=== PATIENT | male | born 1955 | race African-American/Black ===

== ENCOUNTER 2024-08-10 19:06 | Emergency (ER) | payer OTHER, SELFPAY ==
--- NOTE | ~2024-08-10 | XR_ITS ---
EXAMINATION: XR chest 2V Exam Date/Time: 08/10/2024 19:35 CDT HISTORY: increased SOB; diminished lung sounds Comparison: None. RESULT: Lines, tubes, and devices: None. Lungs and pleura: Mild diffuse reticular opacities. Emphysematous/senescent change. Mild posterior c ostophrenic angle blunting. Minimal streaky bibasilar scar/atelectasis. Cardiomediastinal silhouette: Stable. Other: No acute osseous or upper abdominal finding. IMPRESSION: Mild interstitial edema. Trace bilateral pleural effusions versus chronic pleural blunting. Reviewed, dictated and finalized at location K. IMPRESSION: Mild interstitial edema. Trace bilateral pleural effusions versus chronic pleur al blunting.
--- NOTE | 2024-08-10 19:22 | ED.SOB ---
HPI - SOB/Dyspnea General Chief Complaint: Shortness of Breath/Dyspnea Stated Complaint: shortness of breath,dizzy,sweat Time Seen by Provider: 08/10/24 19:22 Source: patient, RN notes reviewed and old records reviewed Mode of arrival: ambulatory Limitations: no limitations History of Present Illness HPI Narrative: 69-year-old male to [facility] for complaint shortness of breath, dizziness, sweating. Patient reports that shortness of breath is nothing new for him as he has a history of asthma. Patient states that he had his flu shot earlier today and has since experienced and excessive sweating as well as his baseline shortness of breath. Patient states he went to work after his flu shot and was sent home due to his symptoms. Patient states that his symptoms have improved since they initially started but states that he wants to be seen. Patient able to tolerate fluids by mouth. Patient denies fever sore throat difficulty swallowing, Cough, chest pain. Patient resting in exam room in no acute distress. Respirations even and nonlabored. Related Data Home Medications Medication Instructions Recorded Confirmed albuterol sulfate 90 mcg/actuation 90 mcg inhalation PRN PRN 08/10/24 08/10/24 aerosol inhaler useasdirected atorvastatin 20 mg tablet 20 mg PO DAILY 08/10/24 08/10/24 fluticasone fur. 200 mcg-umeclid See Rx Instructions .Route .COMPLEX 08/10/24 08/10/24 62.5 mcg-vilant 25 mcg inhalat.powder (Trelegy Ellipta) furosemide 40 mg tablet 40 mg PO DAILY 08/10/24 08/10/24 ivabradine 5 mg tablet (Corlanor) 5 mg PO BID 08/10/24 08/10/24 lisinopril 20 mg tablet 20 mg PO DAILY 08/10/24 08/10/24 spironolactone 25 mg tablet 25 mg PO DAILY 08/10/24 08/10/24 Allergies Allergy/AdvReac Type Severity Reaction Status Date / Time Penicillins Allergy Unknown Verified 08/10/24 19:26 Review of Systems Review of Systems: All systems reviewed & are unremarkable except as noted in HPI and below Constitutional: Constitutional: Reports as per HPI and Reports excessive sweating Eyes: Eyes: Reports no additional eye complaints ENT: Reports system reviewed and no additional complaints, except as documented Cardiovascular: Cardiovascular: Reports no additional cardiovascular complaints, Denies chest pain and Denies dyspnea Respiratory: Respiratory: Reports as per HPI, Denies cough and Reports dyspnea Musculoskeletal: Musculoskeletal: Reports no additional musculoskeletal complaints Neurologic: Reports as per HPI and Reports dizziness Psychiatric: Psychiatric: Reports no additional psychiatric complaints PMFSH Comments At the time of my signature, I reviewed and agree with the nursing past medical, surgical, social, and family history. There is no relevant family history pertinent to the patient complaint. Exam Const: General: cooperative, comfortable, no acute distress, well developed, alert, well groomed and well nourished Nutritional Appearance: well nourished Orientation/consciousness: patient oriented x3 Limitations: no limitations HENMT: Head: normal to inspection Ears: external ears normal Face/Nose/Sinus: Normal external nose present, Normal nares present, normal facial exam, No erythema and No edema Face and sinus: normal facial exam, no erythema and no edema Mouth: Yes Normal oral and palatal mucosa present Eyes: General: appearance normal, both eyes and all related structures Neck: Neck: normal visual inspection, full ROM and no meningeal signs Chest: Chest palpation & inspection: normal inspection of the chest Resp: Effort & Inspection: normal respiratory effort and able to speak in complete sentences Auscultation: diminished lung sounds bilateral throughout Cardio: Jugular venous distension: no JVD Rate: regular rate Rhythm: regular rhythm Back/Spine/Pelvis: Cervical Spine: cervical ROM normal Skin: General skin exam: normal color, no rashes or lesions noted and turgor normal Neuro: General: pat
[2024-08-10 19:23] VITALS: BP 136/84; PULSE 71; RESP 16; TEMP 36.5; O2SAT 97
[2024-08-10 20:10] LABS: EDCOVIDSCREEN Negative (Negative)
== END 2024-08-10 20:21 | disposition home or self-care (01) ==
PROVIDERS: Emergency Provider Nurse Practitioner Family
DX: J44.1 Chronic obstructive pulmonary disease with (acute) exacerbation (principal); Z20.822 Contact with and (suspected) exposure to COVID-19
CPT/HCPCS: 71046; 87426; 99203; G0463